=== PATIENT | female | born 1965 | race Caucasian/White ===

== ENCOUNTER 2019-05-13 16:13 | Emergency (ER) | payer OTHER ==
[~2019-05-13] VITALS: Ht 170.2 cm; Wt 87.5 kg
[2019-05-13 17:25] LABS: BASOPHILS # (AUTO) 0.03 x10^3/uL (0-0.1); BASOPHILS % (AUTO) 0 % (0-1); EOSINOPHILS # (AUTO) 0.33 x10^3/uL (0-0.4); EOSINOPHILS % (AUTO) 4 % (1-7); LYMPHOCYTES % (AUTO) 27 % (22-44); MD NO; MEAN CORPUSCULAR HEMOGLOBIN 31.6 pg (27.0-34.8); MEAN CORPUSCULAR HGB CONC 33.3 g/dL (32.4-35.8); MEAN CORPUSCULAR VOLUME 95.1 fL (80-100); MEAN PLATELET VOLUME 9.9 fL (7.4-10.4); MONOCYTES # (AUTO) 0.69 x10^3/uL (0.2-0.8); MONOCYTES % (AUTO) 9 % (2-9); NEUTROPHILS # (AUTO) 4.83 x10^3/uL (1.8-6.8); NEUTROPHILS % (AUTO) 60 % (42-75); PLATELET COUNT 202 x10^3/uL (130-400); RED BLOOD COUNT 4.66 x10^6/uL (3.82-5.3); RED CELL DISTRIBUTION WIDTH 14.4 % (9.6-15.2)
[2019-05-13 17:34] LABS: ALBUMIN 4.1 g/dL (3.4-5.0); ANION GAP 4 mmol/L (5-15); CALCIUM 9.3 mg/dL (8.5-10.1); CHLORIDE 111 mmol/L (98-107); CREATININE 0.87 mg/dL (0.55-1.02)
[2019-05-13 17:40] LABS: CULTURE INDICATED? YES; MICROSCOPIC INDICATED
--- NOTE | 2019-05-13 18:34 | NUR ---
Pt to room from lobby.
--- NOTE | 2019-05-13 18:58 | NUR ---
PT C/O LEFT FLANK PAIN FOR ONE WEEK. PT DENIES DYSURIA OR CONSTIPATION. PT HAS HX OF KIDNEY STONES AND REPORTS PAIN IS SIMILAR. WAITING FOR MD EXAM AND FURTHER ORDERS.
[2019-05-13] MEDS ORDERED: KETOROLAC 30 MG/1 ML IM ONE (19:30)
[2019-05-13] MEDS ORDERED: CEFTRIAXONE 1,000 MG IM ONE (19:30)
[2019-05-13] MEDS ORDERED: CEFTRIAXONE 1,000 MG ONE (19:34)
[2019-05-13] MEDS ORDERED: LIDOCAINE-MPF 1%, 5ML ONE (19:35)
[2019-05-13] MEDS ORDERED: KETOROLAC 30 MG/1 ML ONE (19:35)
[2019-05-13 20:20] VITALS: BP 127/74
== END 2019-05-13 20:22 | disposition home or self-care (01) ==
LOC: ED 20:16
DX: N10 Acute pyelonephritis (principal)
CPT/HCPCS: 36415; 74176; 80048; 81001; 82040; 85025; 87086; 96372; 99284; J0696; J1885